=== PATIENT | female | born 1935 | race Two or more races ===

== ENCOUNTER → 2016-09-01 | Outpatient (CLI) | payer MEDICARE, OTHER ==
[~2016-09-01] MED LIST: AMLO-512 PO; APIX2.5T PO; ASA3 PO; ATOR40TA28 PO; CALC25 PO; CARV12 PO; CEPH500 PO; FERR-89 PO; FURO40 PO; HYDR-2924 PO; HYDR-3965 PO; ISOS30TA6 PO; NITR0.4T27 SL; PANT40TA25 PO; PERCT PO; PHOSLOC PO; SODI650T PO; TRAM50TA4 PO; VITAD1000 PO
== END | disposition home or self-care (01) ==
LOC: RADPV 11:19
PROVIDERS: ATTEND Internal Medicine
DX: J18.9 Pneumonia, unspecified organism (principal); I51.7 Cardiomegaly; I70.0 Atherosclerosis of aorta; R91.8 Other nonspecific abnormal finding of lung field; M47.814 Spondylosis without myelopathy or radiculopathy, thoracic region
CPT/HCPCS: 71020

== ENCOUNTER → 2017-01-23 | Outpatient (CLI) | payer MEDICARE, OTHER ==
[~2017-01-23] MED LIST changes: -ASA3 PO; +ASPI-989 PO; -HYDR-3965 PO; +HYDR-4061 PO; -NITR0.4T27 SL; +NITR0.4T50 SL
== END | disposition home or self-care (01) ==
LOC: RADPV 14:59
PROVIDERS: ATTEND Internal Medicine
DX: M17.0 Bilateral primary osteoarthritis of knee (principal); M11.262 Other chondrocalcinosis, left knee; M11.261 Other chondrocalcinosis, right knee; M25.461 Effusion, right knee; M25.462 Effusion, left knee; I70.203 Unspecified atherosclerosis of native arteries of extremities, bilateral legs; M25.762 Osteophyte, left knee; M25.761 Osteophyte, right knee

== ENCOUNTER → 2017-01-23 | Outpatient (CLI) | payer MEDICARE, OTHER | END | disposition home or self-care (01) | LOC: RADPV 14:54 | PROVIDERS: ATTEND Internal Medicine | DX: I70.0 Atherosclerosis of aorta (principal) ==